=== PATIENT | female | born 1970 | race African-American/Black ===

== ENCOUNTER 2018-12-07 10:17 | Outpatient (CLI) | payer OTHER ==
--- NOTE | 2018-12-07 12:06 | RAD ---
FOUR VIEW CERVICAL SPINE: HISTORY: Surgical repair of the neck. Pain. FINDINGS: There are posterior element screws at C3, C4, C5 and C6. No perihardware lucency. In the lateral posi tion, there is slight reversal of cervical lordosis. Mild to moderate degenerative change at C3-4-C5, C5-C6. Mild loss of disc space height at C6-C7. Predental space is unremarkable Limited evaluation of the cervicothoracic junction. There is no prevertebral soft tissue swelling. On the AP projection, no malalignment. There are no cervical spine fractures. IMPRESSION: Extensive posterior fusion of the cervical spine. Further evaluation with cervical myelogram for cerv ical spine MRI warranted. Transcribed Date/Time: 12/07/2018 12:12 PM
== END 2018-12-07 10:18 | disposition home or self-care (01) ==
LOC: NAV RAD 10:17
PROVIDERS: ATTEND Family Medicine
DX: M50.123 Cervical disc disorder at C6-C7 level with radiculopathy (principal); Z98.1 Arthrodesis status
CPT/HCPCS: 72040

== ENCOUNTER 2022-03-08 13:37 | Outpatient (CLI) | payer BC | END 2022-03-08 13:38 | disposition home or self-care (01) | LOC: NAV RAD 13:37 | PROVIDERS: ATTEND Family Medicine | DX: M79.671 Pain in right foot (principal); M77.31 Calcaneal spur, right foot ==

== ENCOUNTER 2023-08-23 13:13 | Outpatient (CLI) | payer BC | END 2023-08-23 13:14 | disposition home or self-care (01) | LOC: NAV RAD 13:13 | PROVIDERS: ATTEND Nurse Practitioner Family | DX: M54.32 Sciatica, left side (principal); M48.16 Ankylosing hyperostosis [Forestier], lumbar region; M43.16 Spondylolisthesis, lumbar region | CPT/HCPCS: 72100 ==